=== PATIENT | female | born 1980 | race Caucasian/White ===

== ENCOUNTER 2019-03-13 11:06 | Outpatient (CLI) | payer BC, SELFPAY ==
--- NOTE | 2019-03-13 | US_ITS ---
WS: [id number] ULTRASOUND PELVIS TECHNIQUE: Transabdominal. Transvaginal deferred. CLINICAL INFORMATION: MENORRHAGIA LMP: 02/10/2019 : No. COMPARISON: None. FINDINGS: Cervix measures 4.3 cm Bicornuate uterus Orientation: Anteverted. Size: 9.6 cm x 6.2 cm x 4.9 cm Masses: None. Cervix: 4.3 cm. Endometrium: Normal. Endometrium thickness: 4.8 cm. Adnexa: Normal. Right ovary size: 3.2 cm x 1.7 cm x 2.2 cm. Right ovary volume: 6.4 ccm3 Left ovary size: 4.3 cm x 4.3 cm x 3.8 cm. Left ovary volume: 37.1 ccm3 Left ovarian cyst measuring 1.9 x 1.7 x 2.4 cm Free fluid: Trace Other findings: None. US/US pelvic complete* [id number] IMPRESSION: 1. Bicornuate uterus. 2. Left ovarian cyst measuring 1.9 x 1.7 x 2.4 CCM. 3. Trace free fluid in the cul-de-sac. 4. Normal right ovary.
== END 2019-03-13 11:07 | disposition home or self-care (01) ==
LOC: RADOUTREAD 13:47
PROVIDERS: Visit Provider Family Medicine
DX: Z76.89 Persons encountering health services in other specified circumstances (principal)

== ENCOUNTER → 2019-10-01 09:11 | Outpatient (BNVA) | payer BC, SELFPAY | PROVIDERS: Referring Provider Registered Nurse; Visit Provider Podiatrist Foot & Ankle Surgery | DX: L60.3 Nail dystrophy (principal) | CPT/HCPCS: 87210 ==